=== PATIENT | female | born 1990 | race African-American/Black ===

== ENCOUNTER 2020-10-26 03:32 | Inpatient (IN) ==
[2020-10-26 04:14] LABS: Bacteria,Urine Occasional /HPF (Few); Bilirubin,Urine Negative (Negative); Blood, Urine Negative (Negative); Glucose,Urine (UA) Negative (Negative); Ketones,Urine Negative (Negative); Nitrite,Urine Positive (Negative); Protein,Urine Negative; RBC,Urine 5 /HPF (0-4); Squamous Epithelial Cell,Urine Occasional /HPF (0-10); Urine Appearance CLEAR (Clear); Urine Color Straw (Yellow); Urine Specific Gravity 1.008 (1.001-1.035); Urine Urobilinogen < 2.0 EU/DL (0.2-1.0); WBC,Urine 63 /HPF (0-6)
[2020-10-26] MEDS ORDERED: LACTATED RINGERS 1,000 ML IV ONE ×2 (04:14→10:08)
[2020-10-26 04:35] LABS: Barbiturates Screen,Urine Negative (Negative); Benzodiazepines Screen,Urine Negative (Negative); Cannabinoid Screen,Urine Positive (Negative); Opiate Screen,Urine Negative (Negative); Phencyclidine Screen,Urine Negative (Negative)
[2020-10-26] MEDS ORDERED: ceFAZolin 2,000 MG in PREMIX 1 EACH IV ONE (05:44)
[2020-10-26] MEDS ORDERED: BUTORPHANOL 1 MG/ML VIAL IV ONE (05:45)
[2020-10-26] MEDS ORDERED: TERBUTALINE 1 MG/1 ML VIAL SUBCUT PRN (05:46)
[2020-10-26] MEDS ORDERED: LACTATED RINGERS 1,000 ML IV SCH ×2 (06:00→06:30)
[2020-10-26] MEDS ORDERED: ONDANSETRON 4 MG/2 ML VIAL IV PRN ×2 (06:16→14:06)
[2020-10-26] MEDS ORDERED: INFLUENZA VIRUS VACCINE 0.5 ML SYRINGE IM ONE (06:24)
[2020-10-26 06:50] LABS: Basophils % 0.2 % (0.0-0.8); Eosinophils % 0.2 % (0.00-10.9); Hematocrit 30.7 VOL% (35.7-47.0); Hemoglobin 9.6 GM/DL (12.0-16.0); Immature Granulocytes % 0.8 %; Immature Granulocytes Absolute 0.13 #; Lymphocytes # 2.3 10*3/uL (1.4-4.0); Lymphocytes % 13.1 % (21.3-54.2); Mean Corpuscular HGB Conc 31.3 GM/DL (32-36); Mean Corpuscular Volume 77.1 FL (87-102); Monocytes % 6.9 % (1.7-12.7); Neutrophils % 78.8 % (38.7-73.9); Platelet Count 159 T/CUMM (130-400); Red Blood Count 3.98 MC/CUMM (3.8-5.5); Red Cell Distribution Width 15.2 % (9.3-17.3); White Blood Count 17.3 T/CUMM (4-12)
[2020-10-26 07:09] LABS: Platelet Estimate Normal
[2020-10-26 07:10] LABS: Anisocytosis 2+; Giant Platelets Few; Polychromasia Slight
[2020-10-26 07:30] LABS: Albumin 2.2 G/DL (3.4-5.0); Bilirubin,Total 0.9 MG/DL (0.2-1.0); Calcium 8.3 MG/DL (8.5-10.1); Osmolality,Calculated 274.5 MOS/KG (273-304)
[2020-10-26 09:36] LABS: Hepatitis B Surface Ag Quant < 0.10 Index; Hepatitis B Surface Ag Result Negative (Negative)
[2020-10-26] MEDS ORDERED: AMPICILLIN INJ 1,000 MG in SODIUM CHLORIDE 0.9% 100 ML IV SCH ×2 (10:00→14:00)
[2020-10-26] MEDS ORDERED: AMPICILLIN INJ 2,000 MG in SODIUM CHLORIDE 0.9% 100 ML IV ONE (10:00)
[2020-10-26] MEDS ORDERED: ePHEDrine 50 MG/ML VIAL IV PRN (10:08)
[2020-10-26] MEDS ORDERED: FAMOTIDINE 20 MG/2 ML VIAL IV ONE (10:08)
[2020-10-26] MEDS ORDERED: CITRIC ACID/SODIUM CITRATE 30 ML UDCUP PO ONE (10:08)
[2020-10-26] MEDS ORDERED: OXYTOCIN/LR 20 UNIT/1,000 ML BAG IV SCH (10:30)
[2020-10-26] MEDS ORDERED: fentaNYL 2 MCG/ROPIV 0.2% EPID 100 ML EPIDURAL SCH (10:30)
[2020-10-26 12:52] LABS: Bilirubin,Urine Negative (Negative); Blood, Urine Negative (Negative); Glucose,Urine (UA) Negative (Negative); Ketones,Urine Negative (Negative); Nitrite,Urine Positive (Negative); Protein,Urine Negative; RBC,Urine 1 /HPF (0-4); Squamous Epithelial Cell,Urine Occasional /HPF (0-10); Urine Appearance CLEAR (Clear); Urine Color Straw (Yellow); Urine Specific Gravity 1.006 (1.001-1.035); Urine Urobilinogen < 2.0 EU/DL (0.2-1.0); WBC,Urine 23 /HPF (0-6)
[2020-10-26] MEDS ORDERED: miSOPROStoL 200 MCG TABLET ONE (13:45)
[2020-10-26] MEDS ORDERED: METHYLERGONOVINE 0.2 MG/1 ML AMP ONE (13:46)
[2020-10-26] MEDS ORDERED: CARBOPROST TROMETHAMINE 250 MCG/ML AMP IM ONE (13:46)
[2020-10-26] MEDS ORDERED: LIDOCAINE 1% 50 ML VIAL ONE (13:47)
[2020-10-26] MEDS ORDERED: HYDROCORTISONE 2.5% RECTAL CREAM 30 GM TUBE TOP PRN (14:06)
[2020-10-26] MEDS ORDERED: BISACODYL 10 MG SUPP RECTAL PRN (14:06)
[2020-10-26] MEDS ORDERED: MEASLES/MUMPS/RUBELLA VACCINE 0.5 ML VIAL SUBCUT ONE (14:06)
[2020-10-26] MEDS ORDERED: LANOLIN 50% CREAM 0.3 OZ TUBE TOP PRN (14:06)
[2020-10-26] MEDS ORDERED: ACETAMINOPHEN 325 MG TABLET PO PRN (14:06)
[2020-10-26] MEDS ORDERED: DIPH/TET/ACEL PERT BOOSTER VACCINE 0.5 ML VIAL IM ONE (14:06)
[2020-10-26] MEDS ORDERED: IBUPROFEN 800 MG TABLET PO PRN (14:06)
[2020-10-26] MEDS ORDERED: WITCH HAZEL PADS 100/JAR TOP PRN (14:06)
[2020-10-26] MEDS ORDERED: RHO(D) IMMUNE GLOBULIN 300 MCG SYRINGE IM ONE (14:06)
[2020-10-26] MEDS ORDERED: oxyCODONE/ACETAMINOPHEN 5-325 MG TABLET PO PRN ×2 (14:06)
[2020-10-26] MEDS ORDERED: BENZOCAINE 20%/MENTHOL 0.5% SPRAY 56 GM CAN TOP PRN (14:06)
[2020-10-26] MEDS ORDERED: OXYTOCIN/LR 20 UNIT/1,000 ML BAG IV ONE (14:06)
[2020-10-26 14:29] LABS: Cord Arterial Blood HCO3 26.1 MMOL/L
[2020-10-26 14:32] LABS: Cord Venous Blood HCO3 23.2 MMOL/L; Cord Venous Blood PCO2 45.4 MMHG; Cord Venous Blood PO2 32.3
[2020-10-26] MEDS: DOCUSATE SODIUM 100 MG CAPSULE PO SCH (21:57)
[2020-10-27 06:07] LABS: Basophils % 0.2 % (0.0-0.8); Eosinophils % 0.2 % (0.00-10.9); Hematocrit 27.9 VOL% (35.7-47.0); Hemoglobin 8.7 GM/DL (12.0-16.0); Immature Granulocytes % 0.5 %; Immature Granulocytes Absolute 0.08 #; Lymphocytes % 11.7 % (21.3-54.2); Mean Corpuscular HGB Conc 31.2 GM/DL (32-36); Mean Corpuscular Volume 77.1 FL (87-102); Monocytes % 8.7 % (1.7-12.7); Neutrophils % 78.7 % (38.7-73.9); Platelet Count 138 T/CUMM (130-400); Red Blood Count 3.62 MC/CUMM (3.8-5.5); Red Cell Distribution Width 15.1 % (9.3-17.3); White Blood Count 16.9 T/CUMM (4-12)
[2020-10-27 07:49] LABS: Anisocytosis 2+; Band Neutrophils 2 % (0-10); Lymphocytes 14 % (20-55); Platelet Estimate Adequate; Segmented Neutrophils 75 % (50-85); Total Cells Counted 100
[2020-10-27] MEDS ORDERED: IRON (CARBONYL)/VIT C/B12/FA TABLET PO SCH (10:00)
[2020-10-27] MEDS: DOCUSATE SODIUM 100 MG CAPSULE PO SCH (10:15)
[2020-10-27] MEDS ORDERED: POTASSIUM CHLORIDE 20 MEQ TABLET PO SCH (11:30)
[2020-10-27 11:47] VITALS: BP 136/73
== END 2020-10-27 13:21 | disposition left against medical advice (07) | DRG 560 ==
LOC: N.LDOUT 03:32 → N.LD 03:35 → N.OB 15:44
PROVIDERS: ADMIT Obstetrics & Gynecology; ATTEND Specialist